=== PATIENT | female | born 1930 | race Caucasian/White ===

== ENCOUNTER 2021-01-03 09:20 | Inpatient (IN) ==
[2021-01-03] MEDS ORDERED: SODIUM CHLORIDE 0.9% 500 ML IV STA (09:37)
[2021-01-03] MEDS ORDERED: PANTOPRAZOLE 40 MG VIAL IV STA (09:37)
[2021-01-03 09:56] LABS: Basophils % 0.5 % (0.0-0.8); Eosinophils # 0.1 10*3/uL (0.0-0.87); Eosinophils % 0.9 % (0.00-10.9); Hematocrit 35.9 VOL% (35.7-47.0); Hemoglobin 11.5 GM/DL (12.0-16.0); Immature Granulocytes % 0.5 %; Immature Granulocytes Absolute 0.04 #; Lymphocytes # 0.8 10*3/uL (1.4-4.0); Lymphocytes % 9.2 % (21.3-54.2); Mean Corpuscular Volume 94.2 FL (87-102); Mean Platelet Volume 9.4 FL (9.6-12.0); Monocytes % 6.4 % (1.7-12.7); Neutrophils % 82.5 % (38.7-73.9); Platelet Count 221 T/CUMM (130-400); Red Blood Count 3.81 MC/CUMM (3.8-5.5); Red Cell Distribution Width 13.3 % (9.3-17.3); White Blood Count 8.6 T/CUMM (4-12)
[2021-01-03 10:11] LABS: PT Patient Result 10.5 SECS (9.8-11.9); Partial Thromboplastin Time 66.8 SECS (23.9-33.8)
[2021-01-03 10:58] LABS: Albumin 3.4 G/DL (3.4-5.0); Bilirubin,Total 0.6 MG/DL (0.2-1.0); Calcium 8.6 MG/DL (8.5-10.1); Osmolality,Calculated 286.1 MOS/KG (273-304); Potassium 4.1 MMOL/L (3.5-5.1); Total Protein 6.6 G/DL (6.4-8.3)
[2021-01-03] MEDS ORDERED: DEXTROSE 50% 25 GM/50 ML VIAL IV PRN (11:11)
[2021-01-03] MEDS ORDERED: GLUCAGON 1 MG VIAL IM PRN (11:11)
[2021-01-03 14:11] LABS: Hematocrit 32.4 VOL% (35.7-47.0); Hemoglobin 10.8 GM/DL (12.0-16.0)
[2021-01-03] MEDS ORDERED: SODIUM CHLORIDE 0.9% 500 ML IV ONE (14:18)
[2021-01-03] MEDS: SODIUM CHLORIDE 0.9% 1,000 ML IV SCH (15:15)
[2021-01-03 17:31] LABS: Hematocrit 27.5 VOL% (35.7-47.0); Hemoglobin 8.8 GM/DL (12.0-16.0)
[2021-01-03] MEDS: MONTELUKAST 10 MG TABLET PO SCH ×2 (18:27→18:28)
[2021-01-03] MEDS ORDERED: SODIUM CHLORIDE 0.9% 1,000 ML IV PRN (19:09)
[2021-01-03] MEDS: PANTOPRAZOLE 40 MG VIAL IV SCH (20:28)
[2021-01-03 23:48] LABS: Hematocrit 24.3 VOL% (35.7-47.0); Hemoglobin 7.9 GM/DL (12.0-16.0)
[2021-01-04] MEDS: SODIUM CHLORIDE 0.9% 1,000 ML IV SCH (02:05)
[2021-01-04 05:10] LABS: Basophils % 0.4 % (0.0-0.8); Eosinophils # 0.1 10*3/uL (0.0-0.87); Eosinophils % 1.7 % (0.00-10.9); Hematocrit 26.1 VOL% (35.7-47.0); Hemoglobin 8.4 GM/DL (12.0-16.0); Immature Granulocytes % 0.2 %; Immature Granulocytes Absolute 0.01 #; Lymphocytes # 0.9 10*3/uL (1.4-4.0); Lymphocytes % 19.4 % (21.3-54.2); Mean Corpuscular HGB Conc 32.2 GM/DL (32-36); Mean Corpuscular Volume 94.2 FL (87-102); Mean Platelet Volume 9.3 FL (9.6-12.0); Monocytes % 7.7 % (1.7-12.7); Neutrophils % 70.6 % (38.7-73.9); Platelet Count 161 T/CUMM (130-400); Red Blood Count 2.77 MC/CUMM (3.8-5.5); Red Cell Distribution Width 13.4 % (9.3-17.3); White Blood Count 4.7 T/CUMM (4-12)
[2021-01-04 05:36] LABS: Calcium 8.7 MG/DL (8.5-10.1); Potassium 3.6 MMOL/L (3.5-5.1)
[2021-01-04] MEDS: MAGNESIUM CHLORIDE 64 MG TABLET PO SCH (08:37)
[2021-01-04] MEDS: PANTOPRAZOLE 40 MG VIAL IV SCH ×2 (08:37→23:51)
[2021-01-04] MEDS: LOSARTAN 50 MG TABLET PO SCH (08:37)
[2021-01-04 11:30] LABS: Hematocrit 28.3 VOL% (35.7-47.0); Hemoglobin 8.9 GM/DL (12.0-16.0)
[2021-01-04] MEDS: FUROSEMIDE 20 MG TABLET PO SCH (12:20)
[2021-01-04] MEDS ORDERED: METOPROLOL SUCCINATE XL 25 MG TABLET PO ONE (17:00)
[2021-01-04 17:59] LABS: Hematocrit 26.7 VOL% (35.7-47.0); Hemoglobin 8.9 GM/DL (12.0-16.0)
[2021-01-04] MEDS ORDERED: SODIUM CHLORIDE 0.9% 500 ML IV ONE (18:45)
[2021-01-04] MEDS: METOPROLOL SUCCINATE XL 25 MG TABLET PO SCH (21:30)
[2021-01-04] MEDS: MONTELUKAST 10 MG TABLET PO SCH (21:35)
[2021-01-05 07:10] LABS: Hematocrit 23.1 VOL% (35.7-47.0); Hemoglobin 7.4 GM/DL (12.0-16.0)
[2021-01-05 07:11] LABS: Basophils % 0.7 % (0.0-0.8); Eosinophils # 0.1 10*3/uL (0.0-0.87); Eosinophils % 2.7 % (0.00-10.9); Hematocrit 23.1 VOL% (35.7-47.0); Hemoglobin 7.5 GM/DL (12.0-16.0); Immature Granulocytes % 0.7 %; Immature Granulocytes Absolute 0.03 #; Lymphocytes # 0.7 10*3/uL (1.4-4.0); Lymphocytes % 17.7 % (21.3-54.2); Mean Corpuscular HGB Conc 32.5 GM/DL (32-36); Mean Corpuscular Volume 95.1 FL (87-102); Mean Platelet Volume 9.3 FL (9.6-12.0); Neutrophils % 69.2 % (38.7-73.9); Platelet Count 152 T/CUMM (130-400); Red Blood Count 2.43 MC/CUMM (3.8-5.5); Red Cell Distribution Width 13.4 % (9.3-17.3)
[2021-01-05] MEDS: PANTOPRAZOLE 40 MG VIAL IV SCH ×2 (08:45→21:00)
[2021-01-05] MEDS: MAGNESIUM CHLORIDE 64 MG TABLET PO SCH (09:38)
[2021-01-05] MEDS: LOSARTAN 50 MG TABLET PO SCH (09:39)
[2021-01-05] MEDS: METOPROLOL SUCCINATE XL 25 MG TABLET PO SCH ×2 (09:39→21:00)
[2021-01-05] MEDS: FUROSEMIDE 20 MG TABLET PO SCH (09:44)
[2021-01-05] MEDS ORDERED: SODIUM CHLORIDE 0.9% 1,000 ML IV PRN (10:06)
[2021-01-05 10:41] LABS: Hematocrit 23.9 VOL% (35.7-47.0); Hemoglobin 7.7 GM/DL (12.0-16.0)
[2021-01-05 19:34] LABS: Hemoglobin 8.6 GM/DL (12.0-16.0)
[2021-01-05] MEDS: MONTELUKAST 10 MG TABLET PO SCH (21:00)
[2021-01-06 05:34] LABS: Hematocrit 24.4 VOL% (35.7-47.0); Hemoglobin 8.3 GM/DL (12.0-16.0)
[2021-01-06 06:03] LABS: Calcium 8.5 MG/DL (8.5-10.1); Osmolality,Calculated 287.7 MOS/KG (273-304); Potassium 3.4 MMOL/L (3.5-5.1)
[2021-01-06] MEDS ORDERED: MAGNESIUM SULF RIDER 4 GM in PREMIX 1 EACH IV PRN (07:18)
[2021-01-06] MEDS ORDERED: MAGNESIUM SULF RIDER 2 GM in PREMIX 1 EACH IV PRN (07:18)
[2021-01-06] MEDS ORDERED: POTASSIUM CHLORIDE 20 MEQ TABLET PO ONE (08:27)
[2021-01-06] MEDS: MAGNESIUM CHLORIDE 64 MG TABLET PO SCH (09:09)
[2021-01-06] MEDS: PANTOPRAZOLE 40 MG VIAL IV SCH (09:09)
[2021-01-06] MEDS: METOPROLOL SUCCINATE XL 25 MG TABLET PO SCH (09:10)
[2021-01-06] MEDS: FUROSEMIDE 20 MG TABLET PO SCH (09:10)
[2021-01-06] MEDS: LOSARTAN 50 MG TABLET PO SCH (10:25)
[2021-01-06 11:59] VITALS: BP 123/58
== END 2021-01-06 15:50 | disposition home or self-care (01) | DRG 378 ==
LOC: N.ED 09:20 → SUATTDRO 11:11 → N.EDINP 11:11 → N.5E 13:26
PROVIDERS: ADMIT Internal Medicine; ATTEND Internal Medicine

== ENCOUNTER 2022-05-04 08:13 | Inpatient (IN) ==
[2022-05-04] MEDS ORDERED: ONDANSETRON 4 MG/2 ML VIAL IV STA (08:34)
[2022-05-04] MEDS ORDERED: PANTOPRAZOLE 40 MG VIAL IV STA (08:34)
[2022-05-04] MEDS ORDERED: SODIUM CHLORIDE 0.9% 1,000 ML IV STA (08:34)
[2022-05-04 08:49] LABS: Basophils % 0.4 % (0.0-0.8); Eosinophils % 0.3 % (0.00-10.9); Hematocrit 28.5 VOL% (35.7-47.0); Hemoglobin 9.3 GM/DL (12.0-16.0); Immature Granulocytes % 0.6 %; Immature Granulocytes Absolute 0.04 #; Lymphocytes # 0.7 10*3/uL (1.4-4.0); Lymphocytes % 10.6 % (21.3-54.2); Mean Corpuscular HGB Conc 32.6 GM/DL (32-36); Mean Platelet Volume 9.4 FL (9.6-12.0); Monocytes # 0.4 10*3/uL (0.11-0.8); Neutrophils % 82.1 % (38.7-73.9); Platelet Count 199 T/CUMM (130-400); Red Blood Count 2.97 MC/CUMM (3.8-5.5); Red Cell Distribution Width 13.2 % (9.3-17.3); White Blood Count 6.7 T/CUMM (4-12)
[2022-05-04 08:59] LABS: PT Patient Result 10.9 SECS (10.5-12.0); Partial Thromboplastin Time 24.5 SECS (23.7-32.9)
[2022-05-04 09:09] LABS: Bilirubin,Total 0.4 MG/DL (0.20-1.00); Calcium 9.1 MG/DL (8.5-10.1); Osmolality,Calculated 280.5 MOS/KG (273-304); Potassium 4.5 MMOL/L (3.5-5.1); Total Protein 5.9 G/DL (6.4-8.2)
[2022-05-04] MEDS ORDERED: GLUCAGON 1 MG VIAL IM PRN (11:03)
[2022-05-04] MEDS ORDERED: CETIRIZINE 10 MG TABLET PO PRN (11:06)
[2022-05-04] MEDS ORDERED: DEXTROSE 10% 250 ML BAG IV PRN (11:20)
[2022-05-04 13:19] LABS: Hematocrit 23.9 VOL% (35.7-47.0); Hemoglobin 7.8 GM/DL (12.0-16.0)
[2022-05-04] MEDS ORDERED: BISACODYL 5 MG TABLET PO ONE (15:00)
[2022-05-04] MEDS: LACTATED RINGERS 1,000 ML IV SCH (16:34)
[2022-05-04] MEDS ORDERED: POLYETHYLENE GLYCOL POWDER 255 GM BOTTLE PO ONE (18:00)
[2022-05-04 18:33] LABS: Hematocrit 26.9 VOL% (35.7-47.0); Hemoglobin 8.5 GM/DL (12.0-16.0)
[2022-05-04 20:49] LABS: Hematocrit 24.2 VOL% (35.7-47.0); Hemoglobin 7.8 GM/DL (12.0-16.0)
[2022-05-04] MEDS: PANTOPRAZOLE 40 MG VIAL IV SCH (21:04)
[2022-05-04] MEDS: METOPROLOL SUCCINATE XL 25 MG TABLET PO SCH (21:06)
[2022-05-05 04:53] LABS: Basophils % 0.4 % (0.0-0.8); Eosinophils # 0.1 10*3/uL (0.0-0.87); Eosinophils % 1.8 % (0.00-10.9); Hematocrit 21.9 VOL% (35.7-47.0); Hemoglobin 7.1 GM/DL (12.0-16.0); Immature Granulocytes % 0.7 %; Immature Granulocytes Absolute 0.04 #; Lymphocytes # 1.3 10*3/uL (1.4-4.0); Lymphocytes % 24.2 % (21.3-54.2); Mean Corpuscular HGB Conc 32.4 GM/DL (32-36); Mean Corpuscular Volume 97.3 FL (87-102); Mean Platelet Volume 9.8 FL (9.6-12.0); Monocytes # 0.4 10*3/uL (0.11-0.8); Monocytes % 8.1 % (1.7-12.7); Neutrophils % 64.8 % (38.7-73.9); Platelet Count 169 T/CUMM (130-400); Red Blood Count 2.25 MC/CUMM (3.8-5.5); Red Cell Distribution Width 13.4 % (9.3-17.3); White Blood Count 5.4 T/CUMM (4-12)
[2022-05-05] MEDS ORDERED: POLYETHYLENE GLYCOL POWDER 255 GM BOTTLE PO ONE (05:00)
[2022-05-05 05:02] LABS: PT Patient Result 11.2 SECS (10.5-12.0)
[2022-05-05 05:13] LABS: Calcium 8.2 MG/DL (8.5-10.1); Osmolality,Calculated 281.1 MOS/KG (273-304); Potassium 4.1 MMOL/L (3.5-5.1)
[2022-05-05] MEDS: LACTATED RINGERS 1,000 ML IV SCH (05:26)
[2022-05-05] MEDS ORDERED: SODIUM CHLORIDE 0.9% 1,000 ML IV PRN (07:09)
[2022-05-05] MEDS: MAGNESIUM CHLORIDE 64 MG TABLET PO SCH (09:32)
[2022-05-05] MEDS: METOPROLOL SUCCINATE XL 25 MG TABLET PO SCH (09:32)
[2022-05-05] MEDS: FUROSEMIDE 40 MG TABLET PO SCH ×2 (09:32→13:56)
[2022-05-05] MEDS: CHOLECALCIFEROL 1,000 UNIT TABLET PO SCH (09:32)
[2022-05-05] MEDS ORDERED: propofoL 200 MG/20 ML VIAL IV ONE (12:07)
[2022-05-05] MEDS ORDERED: LIDOCAINE 2% 5 ML VIAL ONE (12:07)
[2022-05-05] MEDS ORDERED: ETOMIDATE 20 MG/10 ML VIAL IV ONE (12:07)
[2022-05-05] MEDS ORDERED: PHENYLEPHRINE 1 MG/10 ML SYRINGE IV ONE (12:17)
[2022-05-05] MEDS: PANTOPRAZOLE 40 MG VIAL IV SCH ×2 (13:56→20:58)
[2022-05-05] MEDS ORDERED: FUROSEMIDE 40 MG/4 ML VIAL IV ONE (14:23)
[2022-05-05 19:46] LABS: Hematocrit 31.4 VOL% (35.7-47.0); Hemoglobin 10.3 GM/DL (12.0-16.0)
[2022-05-06 05:31] LABS: Basophils % 0.5 % (0.0-0.8); Eosinophils # 0.1 10*3/uL (0.0-0.87); Eosinophils % 1.2 % (0.00-10.9); Hematocrit 24.8 VOL% (35.7-47.0); Hemoglobin 8.3 GM/DL (12.0-16.0); Immature Granulocytes % 0.8 %; Immature Granulocytes Absolute 0.05 #; Lymphocytes # 1.1 10*3/uL (1.4-4.0); Lymphocytes % 18.7 % (21.3-54.2); Mean Corpuscular HGB Conc 33.5 GM/DL (32-36); Mean Corpuscular Volume 92.2 FL (87-102); Mean Platelet Volume 9.8 FL (9.6-12.0); Monocytes # 0.6 10*3/uL (0.11-0.8); Monocytes % 9.9 % (1.7-12.7); Neutrophils % 68.9 % (38.7-73.9); Platelet Count 154 T/CUMM (130-400); Red Blood Count 2.69 MC/CUMM (3.8-5.5); Red Cell Distribution Width 15.6 % (9.3-17.3)
[2022-05-06 05:42] LABS: Calcium 7.6 MG/DL (8.5-10.1); Potassium 3.5 MMOL/L (3.5-5.1)
[2022-05-06] MEDS ORDERED: POTASSIUM CHLORIDE 20 MEQ TABLET PO ONE (08:00)
[2022-05-06] MEDS ORDERED: SODIUM CHLORIDE 0.9% 1,000 ML IV PRN (08:48)
[2022-05-06] MEDS: FUROSEMIDE 40 MG TABLET PO SCH (08:56)
[2022-05-06] MEDS: PANTOPRAZOLE 40 MG TABLET PO SCH ×2 (08:56→22:50)
[2022-05-06] MEDS: CHOLECALCIFEROL 1,000 UNIT TABLET PO SCH (08:56)
[2022-05-06] MEDS: MAGNESIUM CHLORIDE 64 MG TABLET PO SCH (08:56)
[2022-05-06 14:36] LABS: Hematocrit 29.6 VOL% (35.7-47.0); Hemoglobin 9.7 GM/DL (12.0-16.0)
[2022-05-07] MEDS: LACTATED RINGERS 1,000 ML IV SCH ×4 (04:19→08:07)
[2022-05-07 05:43] LABS: Basophils % 0.5 % (0.0-0.8); Eosinophils # 0.1 10*3/uL (0.0-0.87); Eosinophils % 1.4 % (0.00-10.9); Hematocrit 26.5 VOL% (35.7-47.0); Hemoglobin 8.7 GM/DL (12.0-16.0); Immature Granulocytes % 0.8 %; Immature Granulocytes Absolute 0.06 #; Lymphocytes # 1.3 10*3/uL (1.4-4.0); Lymphocytes % 17.8 % (21.3-54.2); Mean Corpuscular HGB Conc 32.8 GM/DL (32-36); Mean Platelet Volume 9.9 FL (9.6-12.0); Monocytes # 0.8 10*3/uL (0.11-0.8); Monocytes % 10.5 % (1.7-12.7); Platelet Count 195 T/CUMM (130-400); Red Blood Count 2.85 MC/CUMM (3.8-5.5); Red Cell Distribution Width 15.8 % (9.3-17.3); White Blood Count 7.3 T/CUMM (4-12)
[2022-05-07 05:58] LABS: Calcium 7.6 MG/DL (8.5-10.1); Osmolality,Calculated 281.3 MOS/KG (273-304)
[2022-05-07] MEDS: MAGNESIUM CHLORIDE 64 MG TABLET PO SCH (09:38)
[2022-05-07] MEDS: CHOLECALCIFEROL 1,000 UNIT TABLET PO SCH (09:38)
[2022-05-07] MEDS: PANTOPRAZOLE 40 MG TABLET PO SCH ×2 (09:38→21:20)
[2022-05-07] MEDS: FUROSEMIDE 40 MG TABLET PO SCH (09:38)
[2022-05-07 22:13] LABS: Hematocrit 21.9 VOL% (35.7-47.0); Hemoglobin 7.2 GM/DL (12.0-16.0)
[2022-05-07] MEDS ORDERED: SODIUM CHLORIDE 0.9% 1,000 ML IV PRN (23:13)
[2022-05-08] MEDS: LACTATED RINGERS 1,000 ML IV SCH (08:18)
[2022-05-08] MEDS: FUROSEMIDE 40 MG TABLET PO SCH (09:12)
[2022-05-08] MEDS: CHOLECALCIFEROL 1,000 UNIT TABLET PO SCH (09:12)
[2022-05-08] MEDS: MAGNESIUM CHLORIDE 64 MG TABLET PO SCH (09:12)
[2022-05-08] MEDS: PANTOPRAZOLE 40 MG TABLET PO SCH ×2 (09:12→20:38)
[2022-05-08 10:20] LABS: Basophils # 0.1 10*3/uL (0.0-0.2); Basophils % 0.6 % (0.0-0.8); Eosinophils # 0.1 10*3/uL (0.0-0.87); Eosinophils % 0.8 % (0.00-10.9); Hematocrit 28.3 VOL% (35.7-47.0); Hemoglobin 9.3 GM/DL (12.0-16.0); Immature Granulocytes % 1.3 %; Lymphocytes # 0.7 10*3/uL (1.4-4.0); Lymphocytes % 9.3 % (21.3-54.2); Mean Corpuscular HGB Conc 32.9 GM/DL (32-36); Mean Corpuscular Volume 92.2 FL (87-102); Mean Platelet Volume 9.6 FL (9.6-12.0); Monocytes # 0.6 10*3/uL (0.11-0.8); Monocytes % 7.8 % (1.7-12.7); Neutrophils % 80.2 % (38.7-73.9); Platelet Count 165 T/CUMM (130-400); Red Blood Count 3.07 MC/CUMM (3.8-5.5); Red Cell Distribution Width 15.1 % (9.3-17.3)
[2022-05-08 10:35] LABS: Calcium 7.6 MG/DL (8.5-10.1); Osmolality,Calculated 277.4 MOS/KG (273-304); Potassium 3.9 MMOL/L (3.5-5.1)
[2022-05-09 05:01] LABS: Basophils % 0.6 % (0.0-0.8); Eosinophils # 0.2 10*3/uL (0.0-0.87); Eosinophils % 3.3 % (0.00-10.9); Hematocrit 24.4 VOL% (35.7-47.0); Immature Granulocytes % 1.7 %; Immature Granulocytes Absolute 0.08 #; Lymphocytes # 0.9 10*3/uL (1.4-4.0); Lymphocytes % 19.3 % (21.3-54.2); Mean Corpuscular HGB Conc 32.8 GM/DL (32-36); Mean Corpuscular Volume 93.1 FL (87-102); Mean Platelet Volume 9.6 FL (9.6-12.0); Monocytes # 0.4 10*3/uL (0.11-0.8); Monocytes % 9.1 % (1.7-12.7); Platelet Count 177 T/CUMM (130-400); Red Blood Count 2.62 MC/CUMM (3.8-5.5); Red Cell Distribution Width 15.9 % (9.3-17.3); White Blood Count 4.8 T/CUMM (4-12)
[2022-05-09 05:16] LABS: Calcium 7.3 MG/DL (8.5-10.1); Osmolality,Calculated 279.1 MOS/KG (273-304); Potassium 3.3 MMOL/L (3.5-5.1)
[2022-05-09] MEDS: CHOLECALCIFEROL 1,000 UNIT TABLET PO SCH (09:52)
[2022-05-09] MEDS: MAGNESIUM CHLORIDE 64 MG TABLET PO SCH (09:52)
[2022-05-09] MEDS: FUROSEMIDE 40 MG TABLET PO SCH (09:52)
[2022-05-09] MEDS: PANTOPRAZOLE 40 MG TABLET PO SCH ×2 (09:52→20:48)
[2022-05-10 05:04] LABS: Basophils % 0.7 % (0.0-0.8); Eosinophils # 0.1 10*3/uL (0.0-0.87); Hematocrit 23.8 VOL% (35.7-47.0); Hemoglobin 7.8 GM/DL (12.0-16.0); Immature Granulocytes % 1.1 %; Immature Granulocytes Absolute 0.06 #; Mean Corpuscular HGB Conc 32.8 GM/DL (32-36); Mean Corpuscular Volume 95.6 FL (87-102); Mean Platelet Volume 9.3 FL (9.6-12.0); Monocytes # 0.5 10*3/uL (0.11-0.8); Monocytes % 9.1 % (1.7-12.7); Neutrophils % 69.1 % (38.7-73.9); Platelet Count 208 T/CUMM (130-400); Red Blood Count 2.49 MC/CUMM (3.8-5.5); Red Cell Distribution Width 16.4 % (9.3-17.3); White Blood Count 5.6 T/CUMM (4-12)
[2022-05-10 05:28] LABS: Calcium 7.4 MG/DL (8.5-10.1); Osmolality,Calculated 277.4 MOS/KG (273-304); Potassium 3.2 MMOL/L (3.5-5.1)
[2022-05-10] MEDS: POTASSIUM CHLORIDE 20 MEQ TABLET PO PRN ×4 (06:05→13:46)
[2022-05-10] MEDS: MAGNESIUM CHLORIDE 64 MG TABLET PO SCH (09:10)
[2022-05-10] MEDS: PANTOPRAZOLE 40 MG TABLET PO SCH ×2 (09:10→21:18)
[2022-05-10] MEDS: FUROSEMIDE 40 MG TABLET PO SCH (09:11)
[2022-05-10] MEDS: CHOLECALCIFEROL 1,000 UNIT TABLET PO SCH (09:11)
[2022-05-11 05:23] LABS: Basophils % 0.7 % (0.0-0.8); Eosinophils # 0.1 10*3/uL (0.0-0.87); Eosinophils % 2.8 % (0.00-10.9); Hematocrit 22.8 VOL% (35.7-47.0); Hemoglobin 7.4 GM/DL (12.0-16.0); Immature Granulocytes % 1.6 %; Immature Granulocytes Absolute 0.07 #; Lymphocytes # 0.8 10*3/uL (1.4-4.0); Lymphocytes % 18.7 % (21.3-54.2); Mean Corpuscular HGB Conc 32.5 GM/DL (32-36); Mean Corpuscular Volume 96.6 FL (87-102); Mean Platelet Volume 9.2 FL (9.6-12.0); Monocytes # 0.4 10*3/uL (0.11-0.8); Monocytes % 8.9 % (1.7-12.7); Neutrophils % 67.3 % (38.7-73.9); Platelet Count 192 T/CUMM (130-400); Red Blood Count 2.36 MC/CUMM (3.8-5.5); Red Cell Distribution Width 16.9 % (9.3-17.3); White Blood Count 4.3 T/CUMM (4-12)
[2022-05-11 05:40] LABS: Calcium 7.5 MG/DL (8.5-10.1); Osmolality,Calculated 281.1 MOS/KG (273-304); Potassium 4.2 MMOL/L (3.5-5.1)
[2022-05-11] MEDS: PANTOPRAZOLE 40 MG TABLET PO SCH ×2 (08:54→21:14)
[2022-05-11] MEDS: FUROSEMIDE 40 MG TABLET PO SCH (08:54)
[2022-05-11] MEDS: CHOLECALCIFEROL 1,000 UNIT TABLET PO SCH (08:54)
[2022-05-11] MEDS: MAGNESIUM CHLORIDE 64 MG TABLET PO SCH (08:55)
[2022-05-11] MEDS: POTASSIUM CHLORIDE 20 MEQ TABLET PO SCH (08:55)
[2022-05-12 05:14] LABS: Basophils % 0.8 % (0.0-0.8); Eosinophils # 0.1 10*3/uL (0.0-0.87); Eosinophils % 2.8 % (0.00-10.9); Hematocrit 22.7 VOL% (35.7-47.0); Hemoglobin 7.2 GM/DL (12.0-16.0); Immature Granulocytes Absolute 0.04 #; Lymphocytes # 0.7 10*3/uL (1.4-4.0); Lymphocytes % 17.5 % (21.3-54.2); Mean Corpuscular HGB Conc 31.7 GM/DL (32-36); Mean Corpuscular Volume 96.6 FL (87-102); Mean Platelet Volume 9.1 FL (9.6-12.0); Monocytes # 0.3 10*3/uL (0.11-0.8); Monocytes % 7.7 % (1.7-12.7); Neutrophils % 70.2 % (38.7-73.9); Platelet Count 213 T/CUMM (130-400); Red Blood Count 2.35 MC/CUMM (3.8-5.5); White Blood Count 3.9 T/CUMM (4-12)
[2022-05-12 05:24] LABS: Calcium 8.3 MG/DL (8.5-10.1)
[2022-05-12 05:29] LABS: Osmolality,Calculated 279.4 MOS/KG (273-304); Potassium 3.8 MMOL/L (3.5-5.1)
[2022-05-12] MEDS: CHOLECALCIFEROL 1,000 UNIT TABLET PO SCH (08:45)
[2022-05-12] MEDS: POTASSIUM CHLORIDE 20 MEQ TABLET PO SCH (08:45)
[2022-05-12] MEDS: MAGNESIUM CHLORIDE 64 MG TABLET PO SCH (08:45)
[2022-05-12] MEDS: FUROSEMIDE 40 MG TABLET PO SCH (08:45)
[2022-05-12] MEDS: PANTOPRAZOLE 40 MG TABLET PO SCH ×2 (08:45→20:08)
[2022-05-12] MEDS: POLYETHYLENE GLYCOL POWDER 17 GM PACK PO SCH (11:37)
[2022-05-12] MEDS ORDERED: SODIUM CHLORIDE 0.9% 1,000 ML IV PRN (12:10)
[2022-05-12 18:22] LABS: Hematocrit 27.8 VOL% (35.7-47.0); Hemoglobin 8.8 GM/DL (12.0-16.0)
[2022-05-13] MEDS: FUROSEMIDE 40 MG TABLET PO SCH (08:24)
[2022-05-13] MEDS: MAGNESIUM CHLORIDE 64 MG TABLET PO SCH (08:24)
[2022-05-13] MEDS: CHOLECALCIFEROL 1,000 UNIT TABLET PO SCH (08:24)
[2022-05-13] MEDS: PANTOPRAZOLE 40 MG TABLET PO SCH ×2 (08:24→20:21)
[2022-05-13] MEDS: POTASSIUM CHLORIDE 20 MEQ TABLET PO SCH (08:24)
[2022-05-13] MEDS: POLYETHYLENE GLYCOL POWDER 17 GM PACK PO SCH (08:29)
[2022-05-13 08:46] LABS: Hematocrit 29.3 VOL% (35.7-47.0); Hemoglobin 9.3 GM/DL (12.0-16.0)
[2022-05-14 06:28] LABS: Basophils % 0.7 % (0.0-0.8); Eosinophils # 0.1 10*3/uL (0.0-0.87); Eosinophils % 2.5 % (0.00-10.9); Hematocrit 22.9 VOL% (35.7-47.0); Immature Granulocytes % 1.7 %; Immature Granulocytes Absolute 0.07 #; Lymphocytes # 0.6 10*3/uL (1.4-4.0); Lymphocytes % 15.4 % (21.3-54.2); Mean Corpuscular Volume 94.2 FL (87-102); Mean Platelet Volume 9.1 FL (9.6-12.0); Monocytes # 0.4 10*3/uL (0.11-0.8); Monocytes % 8.7 % (1.7-12.7); Platelet Count 193 T/CUMM (130-400); Red Blood Count 2.43 MC/CUMM (3.8-5.5)
[2022-05-14 06:30] LABS: Hemoglobin 7.1 GM/DL (12.0-16.0)
[2022-05-14] MEDS ORDERED: SODIUM CHLORIDE 0.9% 1,000 ML IV PRN (07:38)
[2022-05-14] MEDS: PANTOPRAZOLE 40 MG TABLET PO SCH ×2 (09:09→20:40)
[2022-05-14] MEDS: CHOLECALCIFEROL 1,000 UNIT TABLET PO SCH (09:09)
[2022-05-14] MEDS: MAGNESIUM CHLORIDE 64 MG TABLET PO SCH (09:09)
[2022-05-14] MEDS: POTASSIUM CHLORIDE 20 MEQ TABLET PO SCH (09:09)
[2022-05-14] MEDS: FUROSEMIDE 40 MG TABLET PO SCH (09:10)
[2022-05-14 09:45] LABS: Hematocrit 26.7 VOL% (35.7-47.0); Hemoglobin 8.5 GM/DL (12.0-16.0)
[2022-05-14] MEDS: POLYETHYLENE GLYCOL POWDER 17 GM PACK PO SCH (11:04)
[2022-05-14] MEDS: CETIRIZINE 10 MG TABLET PO SCH (13:10)
[2022-05-15 06:12] LABS: Basophils % 0.8 % (0.0-0.8); Eosinophils # 0.1 10*3/uL (0.0-0.87); Eosinophils % 3.3 % (0.00-10.9); Hematocrit 24.4 VOL% (35.7-47.0); Hemoglobin 7.4 GM/DL (12.0-16.0); Immature Granulocytes % 1.4 %; Immature Granulocytes Absolute 0.05 #; Lymphocytes # 0.8 10*3/uL (1.4-4.0); Lymphocytes % 21.7 % (21.3-54.2); Mean Corpuscular HGB Conc 30.3 GM/DL (32-36); Mean Corpuscular Volume 98.4 FL (87-102); Mean Platelet Volume 9.1 FL (9.6-12.0); Monocytes # 0.4 10*3/uL (0.11-0.8); Monocytes % 9.7 % (1.7-12.7); Neutrophils % 63.1 % (38.7-73.9); Platelet Count 194 T/CUMM (130-400); Red Blood Count 2.48 MC/CUMM (3.8-5.5); White Blood Count 3.6 T/CUMM (4-12)
[2022-05-15 06:29] LABS: Potassium 3.6 MMOL/L (3.5-5.1)
[2022-05-15] MEDS: CETIRIZINE 10 MG TABLET PO SCH (08:53)
[2022-05-15] MEDS: CHOLECALCIFEROL 1,000 UNIT TABLET PO SCH (08:53)
[2022-05-15] MEDS: FUROSEMIDE 40 MG TABLET PO SCH (08:53)
[2022-05-15] MEDS: MAGNESIUM CHLORIDE 64 MG TABLET PO SCH (08:53)
[2022-05-15] MEDS: POTASSIUM CHLORIDE 20 MEQ TABLET PO SCH (08:54)
[2022-05-15] MEDS: PANTOPRAZOLE 40 MG TABLET PO SCH ×2 (08:54→20:24)
[2022-05-15] MEDS: POLYETHYLENE GLYCOL POWDER 17 GM PACK PO SCH (09:26)
[2022-05-15 12:18] LABS: Hematocrit 28.9 VOL% (35.7-47.0); Hemoglobin 9.1 GM/DL (12.0-16.0)
[2022-05-15] MEDS: DOCUSATE SODIUM 100 MG CAPSULE PO SCH (20:24)
[2022-05-16 05:01] LABS: Basophils % 0.6 % (0.0-0.8); Eosinophils # 0.1 10*3/uL (0.0-0.87); Eosinophils % 2.7 % (0.00-10.9); Hematocrit 25.9 VOL% (35.7-47.0); Hemoglobin 8.1 GM/DL (12.0-16.0); Immature Granulocytes % 1.7 %; Immature Granulocytes Absolute 0.08 #; Lymphocytes # 0.8 10*3/uL (1.4-4.0); Lymphocytes % 17.1 % (21.3-54.2); Mean Corpuscular HGB Conc 31.3 GM/DL (32-36); Mean Platelet Volume 8.9 FL (9.6-12.0); Monocytes # 0.5 10*3/uL (0.11-0.8); Monocytes % 10.1 % (1.7-12.7); Neutrophils % 67.8 % (38.7-73.9); Platelet Count 187 T/CUMM (130-400); Red Blood Count 2.67 MC/CUMM (3.8-5.5); Red Cell Distribution Width 19.5 % (9.3-17.3); White Blood Count 4.8 T/CUMM (4-12)
[2022-05-16 05:31] LABS: Calcium 8.8 MG/DL (8.5-10.1); Potassium 4.5 MMOL/L (3.5-5.1)
[2022-05-16] MEDS: MAGNESIUM CHLORIDE 64 MG TABLET PO SCH (08:00)
[2022-05-16] MEDS: POTASSIUM CHLORIDE 20 MEQ TABLET PO SCH (08:00)
[2022-05-16] MEDS: PANTOPRAZOLE 40 MG TABLET PO SCH ×2 (08:00→21:14)
[2022-05-16] MEDS: FUROSEMIDE 40 MG TABLET PO SCH (08:00)
[2022-05-16] MEDS: CHOLECALCIFEROL 1,000 UNIT TABLET PO SCH (08:00)
[2022-05-16] MEDS: DOCUSATE SODIUM 100 MG CAPSULE PO SCH ×2 (08:04→21:14)
[2022-05-16] MEDS: POLYETHYLENE GLYCOL POWDER 17 GM PACK PO SCH (08:05)
[2022-05-16 09:37] LABS: Hematocrit 30.3 VOL% (35.7-47.0); Hemoglobin 9.5 GM/DL (12.0-16.0)
[2022-05-16] MEDS: CETIRIZINE 10 MG TABLET PO SCH (17:29)
[2022-05-17 05:51] LABS: Basophils % 0.7 % (0.0-0.8); Eosinophils # 0.1 10*3/uL (0.0-0.87); Eosinophils % 2.1 % (0.00-10.9); Hematocrit 24.5 VOL% (35.7-47.0); Hemoglobin 7.6 GM/DL (12.0-16.0); Immature Granulocytes % 0.9 %; Immature Granulocytes Absolute 0.04 #; Lymphocytes # 0.7 10*3/uL (1.4-4.0); Lymphocytes % 15.5 % (21.3-54.2); Mean Corpuscular Volume 98.8 FL (87-102); Mean Platelet Volume 9.3 FL (9.6-12.0); Monocytes # 0.4 10*3/uL (0.11-0.8); Neutrophils % 71.8 % (38.7-73.9); Platelet Count 174 T/CUMM (130-400); Red Blood Count 2.48 MC/CUMM (3.8-5.5); Red Cell Distribution Width 19.7 % (9.3-17.3); White Blood Count 4.3 T/CUMM (4-12)
[2022-05-17 06:06] LABS: Calcium 7.7 MG/DL (8.5-10.1); Osmolality,Calculated 283.1 MOS/KG (273-304)
[2022-05-17] MEDS: MAGNESIUM CHLORIDE 64 MG TABLET PO SCH (08:42)
[2022-05-17] MEDS: CHOLECALCIFEROL 1,000 UNIT TABLET PO SCH (08:42)
[2022-05-17] MEDS: FUROSEMIDE 40 MG TABLET PO SCH (08:43)
[2022-05-17] MEDS: PANTOPRAZOLE 40 MG TABLET PO SCH ×2 (08:43→20:56)
[2022-05-17] MEDS: DOCUSATE SODIUM 100 MG CAPSULE PO SCH ×2 (08:43→20:59)
[2022-05-17] MEDS: CETIRIZINE 10 MG TABLET PO SCH (08:43)
[2022-05-17] MEDS: POTASSIUM CHLORIDE 20 MEQ TABLET PO SCH (08:44)
[2022-05-17] MEDS: POLYETHYLENE GLYCOL POWDER 17 GM PACK PO SCH (08:44)
[2022-05-17 13:18] LABS: Hematocrit 29.8 VOL% (35.7-47.0); Hemoglobin 8.8 GM/DL (12.0-16.0)
[2022-05-17 18:13] LABS: Hemoglobin 7.6 GM/DL (12.0-16.0)
[2022-05-17] MEDS: ACETAMINOPHEN 325 MG TABLET PO PRN (23:54)
[2022-05-18 01:07] LABS: Basophils % 0.4 % (0.0-0.8); Eosinophils # 0.1 10*3/uL (0.0-0.87); Eosinophils % 1.7 % (0.00-10.9); Hematocrit 22.2 VOL% (35.7-47.0); Hemoglobin 7.1 GM/DL (12.0-16.0); Immature Granulocytes % 1.1 %; Immature Granulocytes Absolute 0.06 #; Lymphocytes # 0.7 10*3/uL (1.4-4.0); Lymphocytes % 13.7 % (21.3-54.2); Mean Corpuscular Volume 96.1 FL (87-102); Mean Platelet Volume 9.1 FL (9.6-12.0); Monocytes # 0.5 10*3/uL (0.11-0.8); Monocytes % 9.6 % (1.7-12.7); Neutrophils % 73.5 % (38.7-73.9); Platelet Count 163 T/CUMM (130-400); Red Blood Count 2.31 MC/CUMM (3.8-5.5); Red Cell Distribution Width 19.8 % (9.3-17.3); White Blood Count 5.3 T/CUMM (4-12)
[2022-05-18 01:18] LABS: INR 0.9; PT Patient Result 10.4 SECS (10.5-12.0)
[2022-05-18 01:29] LABS: Calcium 8.1 MG/DL (8.5-10.1); Osmolality,Calculated 280.4 MOS/KG (273-304); Potassium 3.5 MMOL/L (3.5-5.1)
[2022-05-18 07:39] LABS: Hematocrit 22.8 VOL% (35.7-47.0); Hemoglobin 7.1 GM/DL (12.0-16.0)
[2022-05-18] MEDS: POTASSIUM CHLORIDE 20 MEQ TABLET PO SCH (09:16)
[2022-05-18] MEDS: PANTOPRAZOLE 40 MG TABLET PO SCH ×2 (09:16→21:02)
[2022-05-18] MEDS: POLYETHYLENE GLYCOL POWDER 17 GM PACK PO SCH (09:16)
[2022-05-18] MEDS: DOCUSATE SODIUM 100 MG CAPSULE PO SCH ×2 (09:16→21:03)
[2022-05-18] MEDS: FUROSEMIDE 40 MG TABLET PO SCH (09:16)
[2022-05-18] MEDS: MAGNESIUM CHLORIDE 64 MG TABLET PO SCH (09:17)
[2022-05-18] MEDS: CETIRIZINE 10 MG TABLET PO SCH (09:17)
[2022-05-18] MEDS: CHOLECALCIFEROL 1,000 UNIT TABLET PO SCH (09:17)
[2022-05-18] MEDS ORDERED: HEPARIN/NACL 0.9% 2 UNITS/ML 6,000 UNIT/3,000 ML BAG IV ONE (10:10)
[2022-05-18] MEDS: SODIUM CHLORIDE 0.45% 1,000 ML IV SCH (10:17)
[2022-05-18] MEDS ORDERED: POTASSIUM CHLORIDE 20 MEQ TABLET PO ONE (10:45)
[2022-05-18] MEDS ORDERED: HEPARIN 5,000 UNIT/1 ML VIAL ONE (10:47)
[2022-05-18] MEDS ORDERED: SODIUM CHLORIDE 0.9% 1,000 ML IV PRN (10:49)
[2022-05-18] MEDS ORDERED: HEPARIN LOCK FLUSH 500 UNIT/5 ML SYRINGE IV ONE (10:54)
[2022-05-18] MEDS ORDERED: DIAZEPAM 5 MG TABLET PO ONE (11:00)
[2022-05-18] MEDS ORDERED: VANCOMYCIN INJ 1,000 MG in SODIUM CHLORIDE 0.9% 250 ML IV ONE (11:00)
[2022-05-18] MEDS ORDERED: MIDAZOLAM 2 MG/2 ML VIAL IV ONE (11:30)
[2022-05-18] MEDS ORDERED: fentaNYL 100 MCG/2 ML VIAL IV ONE (11:30)
[2022-05-18 13:54] LABS: Hematocrit 22.3 VOL% (35.7-47.0)
[2022-05-18 17:17] LABS: Bilirubin,Urine Negative (Negative); Blood, Urine Small mg/dL (Negative); Glucose,Urine (UA) Negative (Negative); Ketones,Urine Negative (Negative); Nitrite,Urine Negative (Negative); Protein,Urine Negative (Negative); Urine Appearance Clear (Clear); Urine Color Yellow (Yellow); Urine pH 5.5 (4.5-8.0)
[2022-05-18 17:26] LABS: Bacteria,Urine Occasional /HPF (Few); Hyaline Casts,Urine 1 /LPF (0-3); RBC,Urine 21 /HPF (0-4); Squamous Epithelial Cell,Urine Occasional /HPF (0-10)
[2022-05-18 17:53] LABS: Hematocrit 28.7 VOL% (35.7-47.0)
[2022-05-19 05:24] LABS: Basophils % 0.7 % (0.0-0.8); Eosinophils # 0.1 10*3/uL (0.0-0.87); Hematocrit 22.7 VOL% (35.7-47.0); Immature Granulocytes % 1.2 %; Immature Granulocytes Absolute 0.05 #; Lymphocytes # 0.6 10*3/uL (1.4-4.0); Lymphocytes % 14.1 % (21.3-54.2); Mean Corpuscular HGB Conc 30.8 GM/DL (32-36); Mean Corpuscular Volume 98.3 FL (87-102); Mean Platelet Volume 9.3 FL (9.6-12.0); Monocytes # 0.5 10*3/uL (0.11-0.8); Monocytes % 12.8 % (1.7-12.7); Neutrophils % 69.2 % (38.7-73.9); Platelet Count 141 T/CUMM (130-400); Red Blood Count 2.31 MC/CUMM (3.8-5.5); Red Cell Distribution Width 18.1 % (9.3-17.3); White Blood Count 4.1 T/CUMM (4-12)
[2022-05-19 05:44] LABS: Calcium 7.6 MG/DL (8.5-10.1); Potassium 3.7 MMOL/L (3.5-5.1)
[2022-05-19] MEDS: POLYETHYLENE GLYCOL POWDER 17 GM PACK PO SCH (08:37)
[2022-05-19] MEDS: CETIRIZINE 10 MG TABLET PO SCH (08:37)
[2022-05-19] MEDS: PANTOPRAZOLE 40 MG TABLET PO SCH ×2 (08:37→20:38)
[2022-05-19] MEDS: DOCUSATE SODIUM 100 MG CAPSULE PO SCH ×2 (08:37→20:38)
[2022-05-19] MEDS: POTASSIUM CHLORIDE 20 MEQ TABLET PO SCH (08:38)
[2022-05-19] MEDS: CHOLECALCIFEROL 1,000 UNIT TABLET PO SCH (08:38)
[2022-05-19] MEDS: MAGNESIUM CHLORIDE 64 MG TABLET PO SCH (08:38)
[2022-05-19] MEDS: FUROSEMIDE 40 MG TABLET PO SCH (08:38)
[2022-05-19] MEDS ORDERED: SODIUM CHLORIDE 0.9% 1,000 ML IV PRN (08:54)
[2022-05-19] MEDS: SODIUM CHLORIDE 0.45% 1,000 ML IV SCH (10:18)
[2022-05-19 13:12] LABS: Hematocrit 29.5 VOL% (35.7-47.0); Hemoglobin 9.5 GM/DL (12.0-16.0)
[2022-05-19 18:23] LABS: Hemoglobin 9.1 GM/DL (12.0-16.0)
[2022-05-20 01:20] LABS: Hematocrit 24.6 VOL% (35.7-47.0)
[2022-05-20 01:44] LABS: Hemoglobin 7.9 GM/DL (12.0-16.0)
[2022-05-20 04:24] LABS: Basophils % 0.8 % (0.0-0.8); Eosinophils # 0.1 10*3/uL (0.0-0.87); Hematocrit 25.2 VOL% (35.7-47.0); Hemoglobin 7.9 GM/DL (12.0-16.0); Immature Granulocytes % 1.5 %; Immature Granulocytes Absolute 0.06 #; Lymphocytes # 0.8 10*3/uL (1.4-4.0); Mean Corpuscular HGB Conc 31.3 GM/DL (32-36); Mean Corpuscular Volume 96.9 FL (87-102); Mean Platelet Volume 9.1 FL (9.6-12.0); Monocytes # 0.5 10*3/uL (0.11-0.8); Neutrophils % 62.7 % (38.7-73.9); Platelet Count 148 T/CUMM (130-400); Red Cell Distribution Width 18.1 % (9.3-17.3); White Blood Count 3.9 T/CUMM (4-12)
[2022-05-20 04:51] LABS: Calcium 7.8 MG/DL (8.5-10.1); Osmolality,Calculated 281.1 MOS/KG (273-304); Potassium 3.9 MMOL/L (3.5-5.1)
[2022-05-20] MEDS: CETIRIZINE 10 MG TABLET PO SCH (10:54)
[2022-05-20] MEDS: MAGNESIUM CHLORIDE 64 MG TABLET PO SCH (10:54)
[2022-05-20] MEDS: CHOLECALCIFEROL 1,000 UNIT TABLET PO SCH (10:54)
[2022-05-20] MEDS: PANTOPRAZOLE 40 MG TABLET PO SCH ×2 (10:55→20:49)
[2022-05-20] MEDS: FUROSEMIDE 40 MG TABLET PO SCH (10:55)
[2022-05-20] MEDS: POTASSIUM CHLORIDE 20 MEQ TABLET PO SCH (11:06)
[2022-05-20] MEDS: DOCUSATE SODIUM 100 MG CAPSULE PO SCH ×2 (11:20→20:50)
[2022-05-20] MEDS: POLYETHYLENE GLYCOL POWDER 17 GM PACK PO SCH (11:21)
[2022-05-20] MEDS: SODIUM CHLORIDE 0.45% 1,000 ML IV SCH (15:15)
[2022-05-21 06:13] LABS: Basophils % 0.9 % (0.0-0.8); Eosinophils # 0.1 10*3/uL (0.0-0.87); Eosinophils % 3.2 % (0.00-10.9); Hematocrit 25.4 VOL% (35.7-47.0); Hemoglobin 7.9 GM/DL (12.0-16.0); Immature Granulocytes % 1.2 %; Immature Granulocytes Absolute 0.04 #; Lymphocytes # 0.8 10*3/uL (1.4-4.0); Lymphocytes % 22.9 % (21.3-54.2); Mean Corpuscular HGB Conc 31.1 GM/DL (32-36); Mean Corpuscular Volume 97.7 FL (87-102); Mean Platelet Volume 9.4 FL (9.6-12.0); Monocytes # 0.3 10*3/uL (0.11-0.8); Monocytes % 9.4 % (1.7-12.7); Neutrophils % 62.4 % (38.7-73.9); Platelet Count 149 T/CUMM (130-400); White Blood Count 3.4 T/CUMM (4-12)
[2022-05-21 06:25] LABS: Calcium 7.8 MG/DL (8.5-10.1); Osmolality,Calculated 282.8 MOS/KG (273-304)
[2022-05-21] MEDS: POTASSIUM CHLORIDE 20 MEQ TABLET PO SCH (08:00)
[2022-05-21] MEDS: PANTOPRAZOLE 40 MG TABLET PO SCH ×2 (08:00→21:06)
[2022-05-21] MEDS: DOCUSATE SODIUM 100 MG CAPSULE PO SCH ×3 (08:00→21:06)
[2022-05-21] MEDS: CETIRIZINE 10 MG TABLET PO SCH (08:00)
[2022-05-21] MEDS: FUROSEMIDE 40 MG TABLET PO SCH (08:00)
[2022-05-21] MEDS: CHOLECALCIFEROL 1,000 UNIT TABLET PO SCH (08:00)
[2022-05-21] MEDS: POLYETHYLENE GLYCOL POWDER 17 GM PACK PO SCH (08:00)
[2022-05-21] MEDS: MAGNESIUM CHLORIDE 64 MG TABLET PO SCH ×2 (08:00→21:06)
[2022-05-21] MEDS ORDERED: MAGNESIUM SULF RIDER 2 GM/50 ML PREMIX IV ONE (13:01)
[2022-05-22 05:46] LABS: Basophils % 0.6 % (0.0-0.8); Eosinophils # 0.1 10*3/uL (0.0-0.87); Eosinophils % 2.6 % (0.00-10.9); Hematocrit 22.9 VOL% (35.7-47.0); Hemoglobin 7.2 GM/DL (12.0-16.0); Immature Granulocytes % 1.3 %; Immature Granulocytes Absolute 0.04 #; Lymphocytes # 0.6 10*3/uL (1.4-4.0); Lymphocytes % 20.5 % (21.3-54.2); Mean Corpuscular HGB Conc 31.4 GM/DL (32-36); Mean Corpuscular Volume 99.1 FL (87-102); Mean Platelet Volume 9.1 FL (9.6-12.0); Monocytes # 0.3 10*3/uL (0.11-0.8); Monocytes % 10.3 % (1.7-12.7); Neutrophils % 64.7 % (38.7-73.9); Platelet Count 156 T/CUMM (130-400); Red Blood Count 2.31 MC/CUMM (3.8-5.5); Red Cell Distribution Width 17.7 % (9.3-17.3); White Blood Count 3.1 T/CUMM (4-12)
[2022-05-22 06:00] LABS: Calcium 7.9 MG/DL (8.5-10.1); Osmolality,Calculated 279.1 MOS/KG (273-304); Potassium 4.1 MMOL/L (3.5-5.1)
[2022-05-22] MEDS: CHOLECALCIFEROL 1,000 UNIT TABLET PO SCH (08:42)
[2022-05-22] MEDS: PANTOPRAZOLE 40 MG TABLET PO SCH ×2 (08:42→21:22)
[2022-05-22] MEDS: MAGNESIUM CHLORIDE 64 MG TABLET PO SCH ×2 (08:42→21:22)
[2022-05-22] MEDS: DOCUSATE SODIUM 100 MG CAPSULE PO SCH ×2 (08:43→21:22)
[2022-05-22] MEDS: FUROSEMIDE 40 MG TABLET PO SCH (08:43)
[2022-05-22] MEDS: POTASSIUM CHLORIDE 20 MEQ TABLET PO SCH (08:47)
[2022-05-22 08:48] LABS: Hematocrit 27.8 VOL% (35.7-47.0); Hemoglobin 8.8 GM/DL (12.0-16.0)
[2022-05-22] MEDS ORDERED: SODIUM CHLORIDE 0.9% 1,000 ML IV PRN ×2 (10:50→19:20)
[2022-05-22] MEDS: CETIRIZINE 10 MG TABLET PO SCH (11:34)
[2022-05-22] MEDS: POLYETHYLENE GLYCOL POWDER 17 GM PACK PO SCH (11:34)
[2022-05-22 13:03] LABS: % Iron Saturation 12.3 % (18-50)
[2022-05-22 13:34] LABS: Folate 12.7 NG/ML (5.38-24.0)
[2022-05-23 05:05] LABS: Basophils % 0.3 % (0.0-0.8); Eosinophils # 0.1 10*3/uL (0.0-0.87); Eosinophils % 1.5 % (0.00-10.9); Hematocrit 27.1 VOL% (35.7-47.0); Hemoglobin 8.7 GM/DL (12.0-16.0); Immature Granulocytes % 0.9 %; Immature Granulocytes Absolute 0.03 #; Lymphocytes # 0.6 10*3/uL (1.4-4.0); Lymphocytes % 17.1 % (21.3-54.2); Mean Corpuscular HGB Conc 32.1 GM/DL (32-36); Mean Corpuscular Volume 95.8 FL (87-102); Mean Platelet Volume 8.9 FL (9.6-12.0); Monocytes # 0.3 10*3/uL (0.11-0.8); Monocytes % 8.4 % (1.7-12.7); Neutrophils % 71.8 % (38.7-73.9); Platelet Count 148 T/CUMM (130-400); Red Blood Count 2.83 MC/CUMM (3.8-5.5); Red Cell Distribution Width 17.1 % (9.3-17.3); White Blood Count 3.3 T/CUMM (4-12)
[2022-05-23 05:07] LABS: Hematocrit 27.6 VOL% (35.7-47.0); Hemoglobin 8.7 GM/DL (12.0-16.0)
[2022-05-23 05:24] LABS: Calcium 8.5 MG/DL (8.5-10.1); Osmolality,Calculated 283.1 MOS/KG (273-304); Potassium 3.7 MMOL/L (3.5-5.1)
[2022-05-23] MEDS: POLYETHYLENE GLYCOL POWDER 17 GM PACK PO SCH (12:38)
[2022-05-23] MEDS: FUROSEMIDE 40 MG TABLET PO SCH (12:38)
[2022-05-23] MEDS: DOCUSATE SODIUM 100 MG CAPSULE PO SCH ×2 (12:40→20:11)
[2022-05-23] MEDS: MAGNESIUM CHLORIDE 64 MG TABLET PO SCH ×2 (12:52→20:11)
[2022-05-23] MEDS: CHOLECALCIFEROL 1,000 UNIT TABLET PO SCH (12:52)
[2022-05-23] MEDS: CETIRIZINE 10 MG TABLET PO SCH (12:52)
[2022-05-23] MEDS: PANTOPRAZOLE 40 MG TABLET PO SCH ×2 (12:52→20:10)
[2022-05-23] MEDS: POTASSIUM CHLORIDE 20 MEQ TABLET PO SCH (12:53)
[2022-05-23] MEDS ORDERED: POLYETHYLENE GLYCOL POWDER 255 GM BOTTLE PO ONE (18:00)
[2022-05-24] MEDS ORDERED: POLYETHYLENE GLYCOL POWDER 255 GM BOTTLE PO ONE (05:00)
[2022-05-24 05:36] LABS: INR 0.9; PT Patient Result 10.5 SECS (10.5-12.0)
[2022-05-24] MEDS ORDERED: LACTATED RINGERS 1,000 ML IV SCH (08:00)
[2022-05-24 08:43] LABS: Hematocrit 27.5 VOL% (35.7-47.0); Hemoglobin 8.5 GM/DL (12.0-16.0)
[2022-05-24 09:34] LABS: Hematocrit 26.4 VOL% (35.7-47.0); Hemoglobin 8.3 GM/DL (12.0-16.0)
[2022-05-24] MEDS ORDERED: propofoL 200 MG/20 ML VIAL IV ONE (11:51)
[2022-05-24] MEDS ORDERED: LIDOCAINE 2% 5 ML VIAL ONE (11:51)
[2022-05-24] MEDS ORDERED: ETOMIDATE 20 MG/10 ML VIAL IV ONE (11:58)
[2022-05-24] MEDS ORDERED: PHENYLEPHRINE 1 MG/10 ML SYRINGE IV ONE (12:02)
[2022-05-24] MEDS: POTASSIUM CHLORIDE 20 MEQ TABLET PO SCH (13:37)
[2022-05-24] MEDS: DOCUSATE SODIUM 100 MG CAPSULE PO SCH ×2 (13:37→20:02)
[2022-05-24] MEDS: FUROSEMIDE 40 MG TABLET PO SCH (13:38)
[2022-05-24] MEDS: POLYETHYLENE GLYCOL POWDER 17 GM PACK PO SCH (13:40)
[2022-05-24] MEDS: PANTOPRAZOLE 40 MG TABLET PO SCH ×2 (13:40→20:11)
[2022-05-24] MEDS: MAGNESIUM CHLORIDE 64 MG TABLET PO SCH ×2 (13:40→20:11)
[2022-05-24] MEDS: CHOLECALCIFEROL 1,000 UNIT TABLET PO SCH (13:40)
[2022-05-24] MEDS: CETIRIZINE 10 MG TABLET PO SCH (13:41)
[2022-05-24] MEDS ORDERED: SODIUM CHLORIDE 0.9% 1,000 ML IV PRN (13:59)
[2022-05-24] MEDS: LACTATED RINGERS 1,000 ML IV SCH ×2 (14:05→21:54)
[2022-05-25 00:16] LABS: Hematocrit 27.7 VOL% (35.7-47.0); Hemoglobin 8.8 GM/DL (12.0-16.0)
[2022-05-25] MEDS ORDERED: SODIUM CHLORIDE 0.9% 1,000 ML IV PRN (00:39)
[2022-05-25 06:12] LABS: Basophils % 0.5 % (0.0-0.8); Eosinophils # 0.1 10*3/uL (0.0-0.87); Eosinophils % 2.2 % (0.00-10.9); Hematocrit 29.1 VOL% (35.7-47.0); Hemoglobin 9.1 GM/DL (12.0-16.0); Immature Granulocytes % 1.2 %; Immature Granulocytes Absolute 0.05 #; Lymphocytes # 0.5 10*3/uL (1.4-4.0); Lymphocytes % 12.1 % (21.3-54.2); Mean Corpuscular HGB Conc 31.3 GM/DL (32-36); Mean Corpuscular Volume 93.3 FL (87-102); Monocytes # 0.4 10*3/uL (0.11-0.8); Platelet Count 139 T/CUMM (130-400); Red Blood Count 3.12 MC/CUMM (3.8-5.5); Red Cell Distribution Width 18.6 % (9.3-17.3); White Blood Count 4.1 T/CUMM (4-12)
[2022-05-25] MEDS: LACTATED RINGERS 1,000 ML IV SCH ×4 (06:12→23:42)
[2022-05-25 06:31] LABS: Calcium 7.8 MG/DL (8.5-10.1); Osmolality,Calculated 286.6 MOS/KG (273-304); Potassium 3.7 MMOL/L (3.5-5.1)
[2022-05-25] MEDS ORDERED: IBUPROFEN 600 MG TABLET PO ONE (08:25)
[2022-05-25] MEDS ORDERED: ERTAPENEM 1,000 MG in SODIUM CHLORIDE 0.9% 100 ML IV ONE (08:25)
[2022-05-25] MEDS ORDERED: GABAPENTIN 300 MG CAPSULE PO ONE (08:25)
[2022-05-25] MEDS ORDERED: ALVIMOPAN 12 MG CAPSULE PO ONE (08:25)
[2022-05-25] MEDS ORDERED: FUROSEMIDE 20 MG/2 ML VIAL IV PRN (08:39)
[2022-05-25] MEDS: DOCUSATE SODIUM 100 MG CAPSULE PO SCH ×2 (09:31→21:28)
[2022-05-25] MEDS: CHOLECALCIFEROL 1,000 UNIT TABLET PO SCH (10:13)
[2022-05-25] MEDS: FUROSEMIDE 40 MG TABLET PO SCH (10:13)
[2022-05-25] MEDS: POLYETHYLENE GLYCOL POWDER 17 GM PACK PO SCH (10:13)
[2022-05-25] MEDS: MAGNESIUM CHLORIDE 64 MG TABLET PO SCH ×2 (10:13→21:30)
[2022-05-25] MEDS: PANTOPRAZOLE 40 MG TABLET PO SCH ×2 (10:13→21:29)
[2022-05-25] MEDS: CETIRIZINE 10 MG TABLET PO SCH (10:13)
[2022-05-25] MEDS: POTASSIUM CHLORIDE 20 MEQ TABLET PO SCH (10:14)
[2022-05-25] MEDS ORDERED: FUROSEMIDE 20 MG/2 ML VIAL IV ONE (11:30)
[2022-05-25] MEDS ORDERED: FUROSEMIDE 40 MG/4 ML VIAL IV ONE (11:45)
[2022-05-25] MEDS ORDERED: INDOCYANINE GREEN 25 MG VIAL IV ONE (11:50)
[2022-05-25] MEDS ORDERED: TISSUE ADHESIVE 1 EACH APPLICATOR TOP ONE ×2 (11:50→16:11)
[2022-05-25] MEDS ORDERED: ONDANSETRON 4 MG/2 ML VIAL ONE (12:04)
[2022-05-25] MEDS ORDERED: fentaNYL 100 MCG/2 ML VIAL ONE (12:04)
[2022-05-25] MEDS ORDERED: LIDOCAINE 2% 5 ML VIAL ONE (12:04)
[2022-05-25] MEDS ORDERED: ETOMIDATE 40 MG/20 ML VIAL IV ONE (12:04)
[2022-05-25] MEDS ORDERED: ROCURONIUM 50 MG/5 ML VIAL IV ONE ×2 (12:04→14:49)
[2022-05-25] MEDS ORDERED: DEXAMETHASONE 4 MG/1 ML VIAL ONE ×3 (12:04→13:05)
[2022-05-25] MEDS ORDERED: ROPIVACAINE 0.5% 30 ML VIAL ONE (12:12)
[2022-05-25] MEDS ORDERED: LIDOCAINE 1% 5 ML VIAL ONE (12:12)
[2022-05-25] MEDS ORDERED: DEXMEDETOMIDINE 200 MCG/2 ML VIAL ONE (12:22)
[2022-05-25] MEDS ORDERED: ACETAMINOPHEN INJ 1,000 MG/100 ML VIAL IV ONE (12:57)
[2022-05-25] MEDS ORDERED: LACTATED RINGERS 1,000 ML IV ONE ×2 (12:58→16:07)
[2022-05-25] MEDS ORDERED: LACTATED RINGERS 1,000 ML IV SCH (13:00)
[2022-05-25] MEDS ORDERED: ePHEDrine 50 MG/ML VIAL ONE (13:13)
[2022-05-25] MEDS ORDERED: SEVOFLURANE 1 UNIT/15 MINUTE INH ONE ×8 (13:56→16:29)
[2022-05-25] MEDS ORDERED: KETOROLAC 30 MG/1 ML VIAL IV ONE (15:56)
[2022-05-25] MEDS ORDERED: PHENYLEPHRINE 1 MG/10 ML SYRINGE IV ONE (16:07)
[2022-05-25] MEDS ORDERED: GLYCOPYRROLATE 0.4 MG/2 ML VIAL ONE (16:07)
[2022-05-25] MEDS ORDERED: NEOSTIGMINE 10 MG/10 ML VIAL ONE (16:07)
[2022-05-25] MEDS: FERRIC GLUCONATE COMPLEX 125 MG in SODIUM CHLORIDE 0.9% 100 ML IV SCH (16:38)
[2022-05-25] MEDS: CYANOCOBALAMIN 1000 MCG/1 ML VIAL SUBCUT SCH (16:39)
[2022-05-25] MEDS ORDERED: HYDROmorphone 1 MG/1 ML SYRINGE IV PRN (16:53)
[2022-05-25 17:02] LABS: Bilirubin,Urine Negative (Negative); Blood, Urine Negative (Negative); Glucose,Urine (UA) Negative (Negative); Hyaline Casts,Urine 8 /LPF (0-3); Ketones,Urine Negative (Negative); Nitrite,Urine Negative (Negative); Protein,Urine Negative (Negative); RBC,Urine <1 /HPF (0-4); Squamous Epithelial Cell,Urine Occasional /HPF (0-10); Urine Appearance Clear (Clear); Urine Color Light Yellow (Yellow); Urine Specific Gravity 1.015 (1.001-1.035); Urine Urobilinogen 0.2 eU/dL (<2.0); Urine pH 6.5 (4.5-8.0)
[2022-05-25] MEDS ORDERED: KETOROLAC 30 MG/1 ML VIAL ONE (17:13)
[2022-05-25] MEDS: KETOROLAC 15 MG/1 ML VIAL IV SCH ×2 (17:17→23:46)
[2022-05-25 17:56] LABS: Basophils % 0.5 % (0.0-0.8); Eosinophils % 0.3 % (0.00-10.9); Hematocrit 38.9 VOL% (35.7-47.0); Hemoglobin 12.4 GM/DL (12.0-16.0); Immature Granulocytes % 1.2 %; Immature Granulocytes Absolute 0.08 #; Lymphocytes # 0.5 10*3/uL (1.4-4.0); Lymphocytes % 7.5 % (21.3-54.2); Mean Corpuscular HGB Conc 31.9 GM/DL (32-36); Mean Platelet Volume 8.9 FL (9.6-12.0); Monocytes # 0.2 10*3/uL (0.11-0.8); Monocytes % 3.2 % (1.7-12.7); Neutrophils % 87.3 % (38.7-73.9); Platelet Count 165 T/CUMM (130-400); Red Blood Count 4.14 MC/CUMM (3.8-5.5); Red Cell Distribution Width 17.5 % (9.3-17.3); White Blood Count 6.5 T/CUMM (4-12)
[2022-05-25] MEDS: ONDANSETRON 4 MG/2 ML VIAL IV PRN (18:15)
[2022-05-25 18:46] LABS: Calcium 7.5 MG/DL (8.5-10.1); Osmolality,Calculated 276.7 MOS/KG (273-304); Potassium 3.7 MMOL/L (3.5-5.1)
[2022-05-25] MEDS ORDERED: PROMETHAZINE 25 MG/1 ML VIAL IM PRN (20:08)
[2022-05-26] MEDS: KETOROLAC 15 MG/1 ML VIAL IV SCH ×4 (05:37→23:25)
[2022-05-26 06:07] LABS: Basophils % 0.2 % (0.0-0.8); Hematocrit 36.5 VOL% (35.7-47.0); Hemoglobin 11.6 GM/DL (12.0-16.0); Immature Granulocytes % 0.4 %; Immature Granulocytes Absolute 0.04 #; Lymphocytes # 0.3 10*3/uL (1.4-4.0); Lymphocytes % 3.5 % (21.3-54.2); Mean Corpuscular HGB Conc 31.8 GM/DL (32-36); Mean Corpuscular Volume 94.3 FL (87-102); Monocytes # 0.4 10*3/uL (0.11-0.8); Monocytes % 4.6 % (1.7-12.7); Neutrophils % 91.3 % (38.7-73.9); Platelet Count 159 T/CUMM (130-400); Red Blood Count 3.87 MC/CUMM (3.8-5.5); Red Cell Distribution Width 17.8 % (9.3-17.3); White Blood Count 9.3 T/CUMM (4-12)
[2022-05-26 06:21] LABS: PT Patient Result 11.4 SECS (10.5-12.0)
[2022-05-26 06:22] LABS: Calcium 7.3 MG/DL (8.5-10.1); Osmolality,Calculated 282.1 MOS/KG (273-304); Potassium 3.9 MMOL/L (3.5-5.1)
[2022-05-26 06:26] LABS: Calcium 7.3 MG/DL (8.5-10.1); Osmolality,Calculated 286.7 MOS/KG (273-304); Potassium 4.3 MMOL/L (3.5-5.1)
[2022-05-26 06:41] LABS: Band Neutrophils 11 % (0-10); Lymphocytes 7 % (20-55); Total Cells Counted 100
[2022-05-26 06:42] LABS: Anisocytosis 1+; Microcytosis 1+; Platelet Estimate Adequate; Polychromasia Slight
[2022-05-26] MEDS ORDERED: MAGNESIUM SULF RIDER 2 GM/50 ML PREMIX IV PRN (06:53)
[2022-05-26] MEDS ORDERED: MAGNESIUM SULF RIDER 4 GM/100 ML PREMIX IV PRN (06:53)
[2022-05-26] MEDS ORDERED: ENOXAPARIN 30 MG/0.3 ML SYRINGE SUBCUT SCH (08:00)
[2022-05-26] MEDS: DOCUSATE SODIUM 100 MG CAPSULE PO SCH ×2 (09:06→20:44)
[2022-05-26] MEDS: PANTOPRAZOLE 40 MG TABLET PO SCH ×2 (09:07→20:38)
[2022-05-26] MEDS: MAGNESIUM CHLORIDE 64 MG TABLET PO SCH ×2 (09:07→20:38)
[2022-05-26] MEDS: CETIRIZINE 10 MG TABLET PO SCH (09:07)
[2022-05-26] MEDS: POLYETHYLENE GLYCOL POWDER 17 GM PACK PO SCH (09:07)
[2022-05-26] MEDS: POTASSIUM CHLORIDE 20 MEQ TABLET PO SCH (09:07)
[2022-05-26] MEDS: FUROSEMIDE 40 MG TABLET PO SCH (09:07)
[2022-05-26] MEDS: CHOLECALCIFEROL 1,000 UNIT TABLET PO SCH (09:08)
[2022-05-26] MEDS: FERRIC GLUCONATE COMPLEX 125 MG in SODIUM CHLORIDE 0.9% 100 ML IV SCH (09:08)
[2022-05-26] MEDS ORDERED: MAGNESIUM SULF RIDER 2 GM/50 ML PREMIX IV ONE (10:00)
[2022-05-26] MEDS: CYANOCOBALAMIN 1000 MCG/1 ML VIAL SUBCUT SCH (10:34)
[2022-05-26] MEDS: LACTATED RINGERS 1,000 ML IV SCH (11:04)
[2022-05-26] MEDS ORDERED: ALBUMIN 5% 25 GM/500 ML VIAL IV ONE (14:30)
[2022-05-26 16:15] LABS: Basophils % 0.1 % (0.0-0.8); Hematocrit 28.6 VOL% (35.7-47.0); Hemoglobin 9.1 GM/DL (12.0-16.0); Immature Granulocytes % 0.7 %; Immature Granulocytes Absolute 0.06 #; Lymphocytes # 0.3 10*3/uL (1.4-4.0); Lymphocytes % 3.7 % (21.3-54.2); Mean Corpuscular HGB Conc 31.8 GM/DL (32-36); Mean Corpuscular Volume 93.8 FL (87-102); Mean Platelet Volume 9.1 FL (9.6-12.0); Monocytes # 0.3 10*3/uL (0.11-0.8); Neutrophils % 92.5 % (38.7-73.9); Platelet Count 151 T/CUMM (130-400); Red Blood Count 3.05 MC/CUMM (3.8-5.5); White Blood Count 8.9 T/CUMM (4-12)
[2022-05-26 17:07] LABS: Band Neutrophils 31 % (0-10); Eosinophils 1 % (0-10); Lymphocytes 1 % (20-55); Metamyelocytes 1 %; Total Cells Counted 100
[2022-05-26 17:08] LABS: Platelet Estimate Adequate
[2022-05-26] MEDS ORDERED: OCTREOTIDE 100 MCG/ML SYRINGE IV ONE (20:00)
[2022-05-26] MEDS: OCTREOTIDE 500 MCG in SODIUM CHLORIDE 0.9% 100 ML IV SCH (21:02)
[2022-05-27] MEDS: LACTATED RINGERS 1,000 ML IV SCH ×2 (01:50)
[2022-05-27] MEDS: KETOROLAC 15 MG/1 ML VIAL IV SCH ×4 (05:24→23:05)
[2022-05-27 05:59] LABS: Basophils % 0.3 % (0.0-0.8); Eosinophils % 0.3 % (0.00-10.9); Hematocrit 31.1 VOL% (35.7-47.0); Hemoglobin 9.7 GM/DL (12.0-16.0); Immature Granulocytes % 1.8 %; Immature Granulocytes Absolute 0.17 #; Lymphocytes # 0.4 10*3/uL (1.4-4.0); Lymphocytes % 4.4 % (21.3-54.2); Mean Corpuscular HGB Conc 31.2 GM/DL (32-36); Mean Corpuscular Volume 95.1 FL (87-102); Mean Platelet Volume 9.1 FL (9.6-12.0); Monocytes # 0.4 10*3/uL (0.11-0.8); Monocytes % 4.1 % (1.7-12.7); Neutrophils % 89.1 % (38.7-73.9); Platelet Count 155 T/CUMM (130-400); Red Blood Count 3.27 MC/CUMM (3.8-5.5); Red Cell Distribution Width 17.5 % (9.3-17.3); White Blood Count 9.3 T/CUMM (4-12)
[2022-05-27 06:13] LABS: Calcium 7.7 MG/DL (8.5-10.1); Osmolality,Calculated 270.2 MOS/KG (273-304); Potassium 4.6 MMOL/L (3.5-5.1)
[2022-05-27] MEDS: OCTREOTIDE 500 MCG in SODIUM CHLORIDE 0.9% 100 ML IV SCH ×2 (06:37→16:09)
[2022-05-27 06:44] LABS: Band Neutrophils 3 % (0-10); Lymphocytes 3 % (20-55); Platelet Estimate Adequate; Total Cells Counted 100
[2022-05-27] MEDS ORDERED: METOPROLOL TARTRATE 5 MG/5 ML VIAL IV PRN (07:45)
[2022-05-27] MEDS ORDERED: METOPROLOL TARTRATE 5 MG/5 ML VIAL IV ONE (08:00)
[2022-05-27] MEDS ORDERED: SODIUM CHLORIDE 0.9% 1,000 ML IV SCH (08:30)
[2022-05-27] MEDS: FERRIC GLUCONATE COMPLEX 125 MG in SODIUM CHLORIDE 0.9% 100 ML IV SCH (09:11)
[2022-05-27] MEDS: MAGNESIUM CHLORIDE 64 MG TABLET PO SCH ×2 (09:11→21:19)
[2022-05-27] MEDS: CETIRIZINE 10 MG TABLET PO SCH (09:11)
[2022-05-27] MEDS: FUROSEMIDE 40 MG TABLET PO SCH (09:11)
[2022-05-27] MEDS: PANTOPRAZOLE 40 MG TABLET PO SCH ×2 (09:11→21:20)
[2022-05-27] MEDS: CHOLECALCIFEROL 1,000 UNIT TABLET PO SCH (09:11)
[2022-05-27] MEDS: POTASSIUM CHLORIDE 20 MEQ TABLET PO SCH (09:12)
[2022-05-27] MEDS: POLYETHYLENE GLYCOL POWDER 17 GM PACK PO SCH (09:12)
[2022-05-27] MEDS: CYANOCOBALAMIN 1000 MCG/1 ML VIAL SUBCUT SCH (09:12)
[2022-05-27] MEDS: DOCUSATE SODIUM 100 MG CAPSULE PO SCH (09:12)
[2022-05-27 11:01] LABS: Albumin 2.1 G/DL (3.4-5.0); Total Protein 4.8 G/DL (6.4-8.2)
[2022-05-27] MEDS ORDERED: ALBUMIN 25% 25 GM/100 ML VIAL IV ONE (11:30)
[2022-05-27] MEDS: METOPROLOL SUCCINATE XL 25 MG TABLET PO SCH ×2 (12:22→12:23)
[2022-05-27] MEDS ORDERED: FUROSEMIDE 40 MG/4 ML VIAL IV ONE (13:00)
[2022-05-27] MEDS ORDERED: METOPROLOL TARTRATE 25 MG TABLET PO ONE (15:30)
[2022-05-27] MEDS: LEVOFLOXACIN INJ 500 MG/100 ML PREMIX IV SCH (17:06)
[2022-05-27] MEDS: METOPROLOL TARTRATE 50 MG TABLET PO SCH (21:20)
[2022-05-28] MEDS: OCTREOTIDE 500 MCG in SODIUM CHLORIDE 0.9% 100 ML IV SCH ×2 (01:37→14:35)
[2022-05-28] MEDS: METOPROLOL SUCCINATE XL 25 MG TABLET PO SCH (04:18)
[2022-05-28] MEDS: KETOROLAC 15 MG/1 ML VIAL IV SCH ×4 (05:04→22:48)
[2022-05-28 05:42] LABS: Albumin 2.2 G/DL (3.4-5.0); Bilirubin,Total 0.8 MG/DL (0.20-1.00); Calcium 7.5 MG/DL (8.5-10.1); Osmolality,Calculated 270.1 MOS/KG (273-304); Total Protein 4.9 G/DL (6.4-8.2)
[2022-05-28] MEDS: POTASSIUM CHLORIDE 20 MEQ TABLET PO SCH (08:35)
[2022-05-28] MEDS: MAGNESIUM CHLORIDE 64 MG TABLET PO SCH ×2 (08:36→20:58)
[2022-05-28] MEDS: CYANOCOBALAMIN 1000 MCG/1 ML VIAL SUBCUT SCH (08:36)
[2022-05-28] MEDS: PANTOPRAZOLE 40 MG TABLET PO SCH ×2 (08:37→20:59)
[2022-05-28] MEDS: FUROSEMIDE 40 MG TABLET PO SCH (08:38)
[2022-05-28] MEDS: METOPROLOL TARTRATE 50 MG TABLET PO SCH ×4 (08:38→20:59)
[2022-05-28] MEDS: CETIRIZINE 10 MG TABLET PO SCH (08:38)
[2022-05-28] MEDS: CHOLECALCIFEROL 1,000 UNIT TABLET PO SCH (08:38)
[2022-05-28] MEDS: POLYETHYLENE GLYCOL POWDER 17 GM PACK PO SCH (08:39)
[2022-05-28] MEDS: FERRIC GLUCONATE COMPLEX 125 MG in SODIUM CHLORIDE 0.9% 100 ML IV SCH (09:08)
[2022-05-28] MEDS ORDERED: FUROSEMIDE 20 MG/2 ML VIAL IV ONE (11:48)
[2022-05-28] MEDS: LEVOFLOXACIN INJ 500 MG/100 ML PREMIX IV SCH (16:04)
[2022-05-29] MEDS: ACETAMINOPHEN 325 MG TABLET PO PRN ×2 (00:11→15:21)
[2022-05-29 00:47] LABS: Bilirubin,Urine Negative (Negative); Blood, Urine Negative (Negative); Glucose,Urine (UA) Negative (Negative); Ketones,Urine Negative (Negative); Nitrite,Urine Negative (Negative); Protein,Urine Negative (Negative); Urine Appearance Clear (Clear); Urine Color Yellow (Yellow); Urine Urobilinogen 0.2 eU/dL (<2.0)
[2022-05-29 00:52] LABS: Bacteria,Urine Occasional /HPF (Few); Hyaline Casts,Urine 1 /LPF (0-3); Mucus,Urine Occasional /LPF (Occasional); Squamous Epithelial Cell,Urine Occasional /HPF (0-10)
[2022-05-29] MEDS: OCTREOTIDE 500 MCG in SODIUM CHLORIDE 0.9% 100 ML IV SCH ×3 (01:36→22:17)
[2022-05-29] MEDS ORDERED: PHENAZOPYRIDINE 95 MG TABLET PO ONE (03:22)
[2022-05-29 04:30] LABS: Basophils % 0.3 % (0.0-0.8); Eosinophils # 0.2 10*3/uL (0.0-0.87); Eosinophils % 2.2 % (0.00-10.9); Hematocrit 27.8 VOL% (35.7-47.0); Hemoglobin 8.7 GM/DL (12.0-16.0); Immature Granulocytes % 0.9 %; Immature Granulocytes Absolute 0.07 #; Lymphocytes # 0.5 10*3/uL (1.4-4.0); Lymphocytes % 6.9 % (21.3-54.2); Mean Corpuscular HGB Conc 31.3 GM/DL (32-36); Mean Corpuscular Volume 94.6 FL (87-102); Mean Platelet Volume 8.9 FL (9.6-12.0); Monocytes # 0.4 10*3/uL (0.11-0.8); Neutrophils % 84.7 % (38.7-73.9); Platelet Count 217 T/CUMM (130-400); Red Blood Count 2.94 MC/CUMM (3.8-5.5); Red Cell Distribution Width 16.2 % (9.3-17.3); White Blood Count 7.6 T/CUMM (4-12)
[2022-05-29 04:51] LABS: Calcium 7.8 MG/DL (8.5-10.1); Potassium 4.5 MMOL/L (3.5-5.1)
[2022-05-29] MEDS: KETOROLAC 15 MG/1 ML VIAL IV SCH ×4 (04:52→22:15)
[2022-05-29] MEDS: PHENAZOPYRIDINE 95 MG TABLET PO SCH ×3 (08:39→16:37)
[2022-05-29] MEDS: PANTOPRAZOLE 40 MG TABLET PO SCH ×2 (08:39→21:00)
[2022-05-29] MEDS: CHOLECALCIFEROL 1,000 UNIT TABLET PO SCH (08:39)
[2022-05-29] MEDS: METOPROLOL TARTRATE 50 MG TABLET PO SCH ×3 (08:39→21:00)
[2022-05-29] MEDS: MAGNESIUM CHLORIDE 64 MG TABLET PO SCH ×2 (08:39→21:00)
[2022-05-29] MEDS: POTASSIUM CHLORIDE 20 MEQ TABLET PO SCH (08:40)
[2022-05-29] MEDS: FERRIC GLUCONATE COMPLEX 125 MG in SODIUM CHLORIDE 0.9% 100 ML IV SCH (08:40)
[2022-05-29] MEDS: CETIRIZINE 10 MG TABLET PO SCH (08:40)
[2022-05-29] MEDS: CYANOCOBALAMIN 1000 MCG/1 ML VIAL SUBCUT SCH (08:41)
[2022-05-29] MEDS: POLYETHYLENE GLYCOL POWDER 17 GM PACK PO SCH (08:42)
[2022-05-29] MEDS: FUROSEMIDE 40 MG TABLET PO SCH (08:43)
[2022-05-29] MEDS: TAMSULOSIN 0.4 MG CAPSULE PO SCH (09:57)
[2022-05-29] MEDS ORDERED: FUROSEMIDE 20 MG/2 ML VIAL IV SCH (16:00)
[2022-05-29] MEDS: LEVOFLOXACIN INJ 500 MG/100 ML PREMIX IV SCH (16:37)
[2022-05-29] MEDS: ONDANSETRON 4 MG/2 ML VIAL IV PRN ×2 (18:11→22:25)
[2022-05-29] MEDS: PROMETHAZINE 25 MG TABLET PO PRN (22:14)
[2022-05-30] MEDS: ONDANSETRON 4 MG/2 ML VIAL IV PRN ×4 (06:15→20:25)
[2022-05-30] MEDS: KETOROLAC 15 MG/1 ML VIAL IV SCH ×2 (07:28→12:02)
[2022-05-30] MEDS: OCTREOTIDE 500 MCG in SODIUM CHLORIDE 0.9% 100 ML IV SCH (07:33)
[2022-05-30 07:53] LABS: Basophils % 0.5 % (0.0-0.8); Eosinophils # 0.2 10*3/uL (0.0-0.87); Eosinophils % 2.9 % (0.00-10.9); Hemoglobin 9.8 GM/DL (12.0-16.0); Immature Granulocytes % 1.1 %; Immature Granulocytes Absolute 0.07 #; Lymphocytes # 0.5 10*3/uL (1.4-4.0); Lymphocytes % 7.5 % (21.3-54.2); Mean Corpuscular HGB Conc 31.6 GM/DL (32-36); Mean Corpuscular Volume 93.9 FL (87-102); Mean Platelet Volume 8.7 FL (9.6-12.0); Monocytes # 0.6 10*3/uL (0.11-0.8); Monocytes % 8.9 % (1.7-12.7); Neutrophils % 79.1 % (38.7-73.9); Platelet Count 230 T/CUMM (130-400); White Blood Count 6.6 T/CUMM (4-12)
[2022-05-30 08:11] LABS: Calcium 8.5 MG/DL (8.5-10.1); Osmolality,Calculated 272.8 MOS/KG (273-304); Potassium 4.4 MMOL/L (3.5-5.1)
[2022-05-30] MEDS: PROMETHAZINE 25 MG TABLET PO PRN (08:38)
[2022-05-30] MEDS: DEXT 5% NACL 0.9% KCL 20 MEQ 20 MEQ/1,000 ML BAG IV SCH (09:27)
[2022-05-30] MEDS: FERRIC GLUCONATE COMPLEX 125 MG in SODIUM CHLORIDE 0.9% 100 ML IV SCH (09:29)
[2022-05-30] MEDS: METOPROLOL TARTRATE 50 MG TABLET PO SCH ×3 (11:32→21:55)
[2022-05-30] MEDS: PHENAZOPYRIDINE 95 MG TABLET PO SCH ×3 (11:32→17:09)
[2022-05-30] MEDS: FUROSEMIDE 40 MG TABLET PO SCH (11:32)
[2022-05-30] MEDS: TAMSULOSIN 0.4 MG CAPSULE PO SCH (11:33)
[2022-05-30] MEDS: CYANOCOBALAMIN 1000 MCG/1 ML VIAL SUBCUT SCH (11:34)
[2022-05-30] MEDS: POLYETHYLENE GLYCOL POWDER 17 GM PACK PO SCH (12:01)
[2022-05-30] MEDS: POTASSIUM CHLORIDE 20 MEQ TABLET PO SCH (12:01)
[2022-05-30] MEDS: PANTOPRAZOLE 40 MG TABLET PO SCH ×2 (12:01→21:55)
[2022-05-30] MEDS: CETIRIZINE 10 MG TABLET PO SCH (12:02)
[2022-05-30] MEDS: MAGNESIUM CHLORIDE 64 MG TABLET PO SCH ×2 (12:02→21:55)
[2022-05-30] MEDS: CHOLECALCIFEROL 1,000 UNIT TABLET PO SCH (12:02)
[2022-05-30] MEDS ORDERED: PROMETHAZINE 25 MG/1 ML VIAL IM PRN (20:29)
[2022-05-31] MEDS: DEXT 5% NACL 0.9% KCL 20 MEQ 20 MEQ/1,000 ML BAG IV SCH (04:46)
[2022-05-31 05:45] LABS: Calcium 8.1 MG/DL (8.5-10.1); Osmolality,Calculated 274.7 MOS/KG (273-304); Potassium 4.1 MMOL/L (3.5-5.1)
[2022-05-31 05:55] LABS: Basophils % 0.4 % (0.0-0.8); Eosinophils # 0.1 10*3/uL (0.0-0.87); Eosinophils % 1.9 % (0.00-10.9); Hematocrit 30.3 VOL% (35.7-47.0); Hemoglobin 9.2 GM/DL (12.0-16.0); Immature Granulocytes % 1.4 %; Lymphocytes # 0.8 10*3/uL (1.4-4.0); Lymphocytes % 11.6 % (21.3-54.2); Mean Corpuscular HGB Conc 30.4 GM/DL (32-36); Mean Corpuscular Volume 97.1 FL (87-102); Mean Platelet Volume 8.7 FL (9.6-12.0); Monocytes # 0.6 10*3/uL (0.11-0.8); Monocytes % 8.9 % (1.7-12.7); Neutrophils % 75.8 % (38.7-73.9); Platelet Count 258 T/CUMM (130-400); Red Blood Count 3.12 MC/CUMM (3.8-5.5); Red Cell Distribution Width 15.9 % (9.3-17.3)
[2022-05-31] MEDS: FUROSEMIDE 40 MG TABLET PO SCH (08:54)
[2022-05-31] MEDS: MAGNESIUM CHLORIDE 64 MG TABLET PO SCH (08:54)
[2022-05-31] MEDS: CETIRIZINE 10 MG TABLET PO SCH (08:54)
[2022-05-31] MEDS: METOPROLOL TARTRATE 50 MG TABLET PO SCH (08:54)
[2022-05-31] MEDS: POTASSIUM CHLORIDE 20 MEQ TABLET PO SCH (08:54)
[2022-05-31] MEDS: PHENAZOPYRIDINE 95 MG TABLET PO SCH ×2 (08:54→12:12)
[2022-05-31] MEDS: CHOLECALCIFEROL 1,000 UNIT TABLET PO SCH (08:54)
[2022-05-31] MEDS: CYANOCOBALAMIN 1000 MCG/1 ML VIAL SUBCUT SCH (08:55)
[2022-05-31] MEDS ORDERED: AZITHROMYCIN 250 MG TABLET PO SCH (09:00)
[2022-05-31] MEDS ORDERED: PANTOPRAZOLE 40 MG VIAL IV SCH (09:00)
[2022-05-31] MEDS: TAMSULOSIN 0.4 MG CAPSULE PO SCH (09:10)
[2022-05-31] MEDS ORDERED: HEPARIN LOCK FLUSH 500 UNIT/5 ML SYRINGE IV SCH (11:00)
[2022-05-31 11:31] VITALS: BP 137/68
[2022-05-31 13:17] LABS: Mycoplasma pneumoniae Ab, IgG Negative (Negative); Mycoplasma pneumoniae Ab, IgM Reactive (Negative)
[2022-06-01] MEDS ORDERED: CYANOCOBALAMIN 500 MCG TABLET PO SCH (09:00)
[2022-06-02 13:41] LABS: Specimen Source SPUTUM
== END 2022-05-31 15:09 | disposition home or self-care (01) | DRG 329 ==
LOC: N.EDINP 08:13 → N.ED 08:13 → SUATTDRO 10:18 → N.3E 15:23
PROVIDERS: ADMIT Internal Medicine; ATTEND Internal Medicine
PROC: [UNRECOGNIZED PROCEDURE] (2022-05-18 08:20)